=== PATIENT | male | born 1990 | race Caucasian/White ===

== ENCOUNTER 2017-12-02 11:54 | Emergency (ER) | payer MEDICAID ==
[2017-12-02 12:19] VITALS: BP 133/81
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
== END 2017-12-02 13:00 | disposition home or self-care (01) ==
LOC: ED 11:54
DX: F11.20 Opioid dependence, uncomplicated (principal); F17.210 Nicotine dependence, cigarettes, uncomplicated
CPT/HCPCS: 36415; 86703; 86803; 99281

== ENCOUNTER 2018-01-07 15:08 | Emergency (ER) | payer MEDICAID, OTHER ==
--- NOTE | 2018-01-07 16:11 | ED ---
Substance Abuse/Use - HPI Summary HPI Summary: Pt brought to the ED by EMS from [facility] after appearing somnolent during an appearance with court officer. Pt is prescribed ativan 1 mg tid and gabapentin, filled the former 2 days ago and misread instructions and was taking 3 pills tid, which he realized today after being confronted with it. He denies relapse on heroin. He is being followed via [facility], where his meds are prescribed. He denies any other complaints, says he is doing well on the other medications (suboxone as well), and is taking as prescribed. He expressed a desire to maintain on his sobriety and take meds as ordered. - History Of Current Complaint Chief Complaint: EDOverdose Stated Complaint: OVERDOSE Time Seen by Provider: 01/07/18 15:27 - Risk Factor(s) Completed Suicide Risk Factors: Male - Allergies/Home Medications Allergies/Adverse Reactions: Allergies Allergy/AdvReac Type Severity Reaction Status Date / Time amoxicillin Allergy Nausea And Verified 12/02/17 12:19 Vomiting PMH/Surg Hx/FS Hx/Imm Hx Sensory History: Denies: Hx Legally Blind, Hx Deafness Opthamlomology History: Denies: Hx Legally Blind Psychiatric History: Denies: Hx Eating Disorder Infectious Disease History: No Infectious Disease History: Denies: Hx Clostridium Difficile, Hx Hepatitis, Hx Human Immunodeficiency Virus (HIV), Hx of Known/Suspected MRSA, Hx Shingles, Hx Tuberculosis, Hx Known/ Suspected VRE, Hx Known/Suspected VRSA, History Other Infectious Disease, Traveled Outside the [place] in Last 30 Days - Family History Known Family History: Positive: Cardiac Disease - [place], Hypertension, Other - HLD , [place] Negative: Respiratory Disease, Blood Disorder - Social History Alcohol Use: None Hx Substance Use: Yes Substance Use Type: Reports: Heroin Substance Use Comment - Amount & Last Used: denies any usage since getting out of rehab Hx Tobacco Use: Yes Smoking Status (MU): Light Every Day Tobacco Smoker Type: eCigarettes Review of Systems Constitutional: Negative Negative: Fever, Chills Eyes: Negative ENT: Negative Cardiovascular: Negative Respiratory: Negative Gastrointestinal: Negative Genitourinary: Negative Skin: Negative All Other Systems Reviewed And Are Negative: Yes Physical Exam Triage Information Reviewed: Yes Vital Signs On Initial Exam: Initial Vitals Temp Pulse Resp BP Pulse Ox 36.8 C 82 14 120/67 100 01/07/18 15:10 01/07/18 15:10 01/07/18 15:10 01/07/18 15:10 01/07/18 15:10 Vital Signs Reviewed: Yes Appearance: Positive: Well-Appearing, No Pain Distress, Well-Nourished Skin: Positive: Warm, Skin Color Reflects Adequate Perfusion, Dry Head/Face: Positive: Normal Head/Face Inspection Eyes: Positive: Normal, EOMI, SEAN - pupils are not pinpoint, not c/w opioid toxidrome, Conjunctiva Clear ENT: Positive: Normal ENT inspection Neck: Positive: Supple Respiratory/Lung Sounds: Positive: Clear to Auscultation Cardiovascular: Positive: Normal, RRR Abdomen Description: Positive: Nontender Musculoskeletal: Positive: Strength/ROM Intact Neurological: Positive: Sensory/Motor Intact, Alert, Oriented to Person Place, Time - Pt is minimally somnolent, but does not require any arousal, does not not off during the interview Psychiatric: Positive: Normal, Affect/Mood Appropriate. Negative: Anxious, Depressed Diagnostics - Vital Signs Vital Signs Temp Pulse Resp BP Pulse Ox 01/07/18 15:33 80 11 123/69 97 01/07/18 15:10 36.8 C 82 14 120/67 100 - Laboratory Lab Statement: Any lab studies that have been ordered have been reviewed, and results considered in the medical decision making process. Course/Dx - Diagnoses Provider Diagnoses: Benzodiazepine intoxication Discharge - Sign-Out/Discharge Documenting (check all that apply): Discharge/Admit/Transfer - Discharge Plan Condition: Good Disposition: HOME Patient Education Materials: Benzodiazepine Overdose (ED) Referrals: Gato Brown MD [Primary Care Provider] - Additional Instructions: Make sure to take care with medication dosing instructions. If you are going to run out of the ativan before the next rx, you will need to contact your prescriber for an additional rx, or else ration what you have remaining to avoid running out and stopping the medicine abruptly - Billing Disposition and Condition Condition: GOOD Disposition: HOME
[2018-01-07 16:22] VITALS: BP 108/78
== END 2018-01-07 16:22 | disposition home or self-care (01) ==
LOC: ED 15:08
DX: R40.0 Somnolence (principal); T42.4X5A Adverse effect of benzodiazepines, initial encounter; Y92.240 Courthouse as the place of occurrence of the external cause; Z88.1 Allergy status to other antibiotic agents; F17.210 Nicotine dependence, cigarettes, uncomplicated
CPT/HCPCS: 99283

== ENCOUNTER 2018-02-22 19:35 | Emergency (ER) | payer MEDICAID, OTHER ==
[2018-02-22 19:40] VITALS: BP 129/77
[2018-02-22] MEDS ORDERED: Ketorolac INJ* 30 MG/ML 1 ML VIAL IV PUSH ONE (20:13)
[2018-02-22] MEDS ORDERED: Mouth Piece, Nicotine* 1 EACH CARTRIDGE ONE (20:32)
[2018-02-22] MEDS ORDERED: Nicotine Inhaler* 10 MG AMP ONE (20:32)
[2018-02-22] MEDS ORDERED: Nicotine Inhaler* 10 MG AMP INH ONE (20:37)
[2018-02-22] MEDS ORDERED: Mouth Piece, Nicotine* 1 EACH CARTRIDGE INH PRN (20:37)
[2018-02-22] MEDS ORDERED: NS 0.9% 1000 ML* 1,000 ML IV ONE (20:54)
[2018-02-22] MEDS: Nicotine PATCH 14 MG/24 HR* PATCH TRANSDERM ONE ×2 (21:01→22:05)
--- NOTE | 2018-02-22 21:03 | RAD ---
INDICATION: Right wrist pain after falling off a skateboard COMPARISON: None. TECHNIQUE: 3 views right wrist. REPORT: Overlying the volar distal pole of the right scaphoid there is a displaced fracture. Remaining visualized bones are intact and appropriately aligned. IMPRESSION: Minimally displaced fracture at the distal volar surface of the right scaphoid bone.
--- NOTE | 2018-02-22 21:10 | RAD ---
INDICATION: Preoperative chest x-ray COMPARISON: None. TECHNIQUE: Single AP view of the chest was obtained. FINDINGS: The heart and mediastinum exhibit normal size and contour. The lungs are grossly clear. There is no evidence of a large pleural effusion. Visualized bones are normal for the patient's age. IMPRESSION: No radiographic evidence for acute cardiopulmonary abnormality on this single AP view chest x-ray.
--- NOTE | 2018-02-22 21:12 | RAD ---
INDICATION: Left hip pain after falling off his skateboard COMPARISON: None TECHNIQUE: 3 views of the left hip and 9 views of the left femur were obtained. FINDINGS: Lucent lines overlying the left intertrochanteric space could be a nondisplaced fracture. Remaining visualized bones are intact and appropriately aligned. IMPRESSION: Likely nondisplaced left intertrochanteric fracture. If clinically warranted, this can be confirmed with CT of the left hip. If the patient's symptoms persist follow-up imaging is recommended.
[2018-02-22 21:27] LABS: ABS Basophils 0.1 10^3/ul (0-0.2); ABS Eosinophils 0.3 10^3/ul (0-0.6); ABS Lymphocytes 1.7 10^3/ul (1.0-4.8); ABS Monocytes 0.6 10^3/ul (0-0.8); ABS Neutrophils 7.8 10^3/ul (1.5-7.7); ABS Nucleated RBC 0 10^3/ul; Eosinophil % 2.6 % (0-6); Hematocrit 39 % (42-52); Hemoglobin 13.6 g/dl (14.0-18.0); Lymphocyte % 16.3 % (25-47); Mean Corpuscular HGB Conc 35 g/dl (31-36); Mean Corpuscular Hemoglobin 30 pg (27-31); Mean Corpuscular Volume 88 fL (80-94); Nucleated Red Blood Cells % 0.1; Platelet Count 214 10^3/ul (150-450); Red Blood Count 4.48 10^6/ul (4.00-5.40); Red Cell Distribution Width 15 % (10.5-15); White Blood Count 10.5 10^3/ul (3.5-10.8)
[2018-02-22 21:37] LABS: INR 1.12 (0.77-1.02)
[2018-02-22 21:43] LABS: EGFR Non-African American 106.1 (>60)
[2018-02-22] MEDS ORDERED: Nicotine PATCH 21 MG/24 HR* PATCH TRANSDERM ONE (21:52)
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
[2018-02-22] MEDS ORDERED: Nicotine PATCH 21 MG/24 HR* PATCH ONE (22:01)
--- NOTE | 2018-02-22 22:02 | RAD ---
CLINICAL HISTORY: Left hip pain after a skateboarding accident COMPARISON: Same day radiograph of the left hip TECHNIQUE: Axial CT images of the pelvis were obtained without intravenous contrast. Reformats in the sagittal and coronal planes were created and reviewed. FINDINGS: There is a nondisplaced right intertrochanteric fracture exhibiting a small degree of comminution. This is depicted best on the coronal plane images (image [id number]). The remaining visualized bones are intact and appropriately aligned. There is mild induration in the surrounding musculature at the fracture left hip. There is no drainable fluid collection or large hematoma. There is mild infiltration of the subcutaneous tissue overlying the left hip. The visualized lower pelvic soft tissue structures are grossly normal. IMPRESSION: Nondisplaced and comminuted left intertrochanteric fracture.
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
== END 2018-02-22 23:11 | disposition left against medical advice (07) ==
LOC: ED 19:35
DX: S62.002A Unspecified fracture of navicular [scaphoid] bone of left wrist, initial encounter for closed fracture (principal); S72.002A Fracture of unspecified part of neck of left femur, initial encounter for closed fracture; V00.131A Fall from skateboard, initial encounter; Y93.51 Activity, roller skating (inline) and skateboarding; Y92.9 Unspecified place or not applicable
CPT/HCPCS: 36415; 71045; 72192; 80053; 83605; 83735; 84484; 85025; 85610; 85730; 86850; 86900; 86901; 93005; 96374; 99283; A9270-GY; J1885

== ENCOUNTER 2018-02-22 23:33 | Emergency (ER) | payer MEDICAID ==
[2018-02-23] MEDS ORDERED: Nicotine PATCH 7 MG/24 HR* PATCH TRANSDERM ONE (00:47)
[2018-02-23 01:03] VITALS: BP 119/64
[2018-02-23] MEDS ORDERED: Nicotine PATCH 21 MG/24 HR* PATCH TRANSDERM ONE (01:11)
--- NOTE | 2018-02-23 01:23 | ED ---
Isabella Palma Emily, scribed for Mercy Thorne MD on 02/23/18 at 0016 . Adult Trauma - HPI Summary HPI Summary: This patient is a 27 year old M presenting to [facility] accompanied by girlfriend status post fall that occurred [employer]. Pt fell while skateboarding. He states that he landed on his left side and caught himself with his right hand. The patient rates the pain 10/10 in severity. Symptoms aggravated by movement. Symptoms alleviated by nothing. Pt was in the ED earlier, and diagnosed with a left hip fracture and right scaphoid fracture. He refused transfer to [facility] and [facility]. - History of Current Complaint Chief Complaint: EDTraumaMultiple Stated Complaint: ARM/HIP INJURY Time Seen by Provider: 02/22/18 23:49 Hx Obtained From: Patient Mechanism of Injury: Fall Onset/Duration: Started Hours Ago, Traumatic, Still Present Onset of Pain: Immediate Onset Severity: Severe Current Severity: Severe Pain Intensity: 10 Pain Scale Used: 0-10 Numeric Location: Extremities Aggravating Factor(s): Movement Alleviating Factor(s): Nothing - Allergy/Home Medications Allergies/Adverse Reactions: Allergies Allergy/AdvReac Type Severity Reaction Status Date / Time amoxicillin Allergy Nausea And Verified 12/02/17 12:19 Vomiting PMH/Surg Hx/FS Hx/Imm Hx Previously Healthy: No Respiratory History: Reports: Hx Asthma GI History: Reports: Other GI Disorders - Pancreatitis Sensory History: Denies: Hx Legally Blind, Hx Deafness Opthamlomology History: Denies: Hx Legally Blind Psychiatric History: Reports: Hx Substance Abuse - Opioid addiction Denies: Hx Eating Disorder Infectious Disease History: No Infectious Disease History: Denies: Hx Clostridium Difficile, Hx Hepatitis, Hx Human Immunodeficiency Virus (HIV), Hx of Known/Suspected MRSA, Hx Shingles, Hx Tuberculosis, Hx Known/ Suspected VRE, Hx Known/Suspected VRSA, History Other Infectious Disease, Traveled Outside the [place] in Last 30 Days - Family History Known Family History: Positive: Cardiac Disease - [place], Hypertension, Other - HLD , [place] Negative: Respiratory Disease, Blood Disorder - Social History Occupation: Employed Full-time Lives: Alone Alcohol Use: None Hx Substance Use: Yes Substance Use Type: Reports: Marijuana Substance Use Comment - Amount & Last Used: No heroin use x120 days Hx Tobacco Use: Yes Smoking Status (MU): Heavy Every Day Tobacco Smoker Type: Regina Review of Systems Negative: Chest Pain Positive: Other - Positive L hip pain and R arm pain All Other Systems Reviewed And Are Negative: Yes Physical Exam - Summary Physical Exam Summary: VITAL SIGNS: Reviewed. GENERAL: Patient is a well-developed and nourished male who is lying comfortable in the stretcher. Patient is not in any acute respiratory distress. HEAD AND FACE: No signs of trauma. No ecchymosis, hematomas or skull depressions. No sinus tenderness. EYES: PERRLA, EOMI x 2, No injected conjunctiva, no nystagmus. EARS: Hearing grossly intact. Ear canals and tympanic membranes are within normal limits. MOUTH: Oropharynx within normal limits. NECK: Supple, trachea is midline, no adenopathy, no JVD, no carotid bruit, no c- spine tenderness, neck with full ROM. CHEST: Symmetric, no tenderness at palpation LUNGS: Clear to auscultation bilaterally. No wheezing or crackles. CVS: Regular rate and rhythm, S1 and S2 present, no murmurs or gallops appreciated. ABDOMEN: Soft, non-tender. No signs of distention. No rebound no guarding, and no masses palpated. Bowel sounds are normal. EXTREMITIES: R wrist on thumb spica. L hip is tender, pain with movement. no edema, no cyanosis or clubbing. NEURO: Alert and oriented x 3. No acute neurological deficits. Speech is normal and follows commands. SKIN: Dry and warm Triage Information Reviewed: Yes Vital Signs On Initial Exam: Initial Vitals Temp Pulse Resp BP Pulse Ox 99.3 F 92 18 131/71 99 02/22/18 23:35 02/22/18 23:35 02/22/18 23:35 02/22/18 23:35 02/22/18 23:35 Vital Signs Reviewed: Yes Diagnostics - Vital Signs Vital Signs Temp Pulse Resp BP Pulse Ox 02/22/18 23:35 99.3 F 92 18 131/71 99 - Laboratory Lab Statement: Any lab studies that have been ordered have been reviewed, and results considered in the medical decision making process. Adult Trauma Course/Dx - Course Course Of Treatment: This patient is a 27 year old M presenting to [facility] accompanied by girlfriend status post fall that occurred [employer]. Pt fell while skateboarding. He states that he landed on his left side and caught himself with his right hand. Pt was in the ED earlier, and diagnosed with a left hip fracture and right scaphoid fracture. He refused transfer to [facility] and left AMA. Consult with Dr. Anguiano (emergency medicine at [facility]) at 0031. He accepts the patient to [facility]. The patient is agreeable with this plan. - Diagnoses Provider Diagnoses: Hip fracture, left, Fracture of scaphoid of right wrist - Physician Notifications Instructed by Provider To: Other - Consult with Dr. Anguiano (emergency medicine at [facility]) at 0031. He accepts the patient to [facility]. Discharge - Sign-Out/Discharge Documenting (check all that apply): Discharge/Admit/Transfer - Transfer - Discharge Plan Condition: Stable Disposition: TRANS HIGHER LVL OF CARE FAC The documentation as recorded by the Isabella garner Emily accurately reflects the service I personally performed and the decisions made by me, Mercy Thorne MD.
--- NOTE | 2018-02-23 05:46 | CONS ---
CC: PCP, Boo Paredes * CONSULTATION REPORT: DATE OF CONSULT: 02/22/18 ATTENDING PHYSICIAN: Dr. Juju Santillan. CHIEF COMPLAINT: Right wrist and left hip pain. HISTORY OF PRESENT ILLNESS: Briefly, Zeeshan Styles is a 27-year-old male who was skateboarding today when he fell, lost his balance, and landed on his left hip as well as his right wrist. He is left-hand dominant. He is a recovering heroin addict, almost 9 months sober. He is on Suboxone. He is present with his , who is currently and due in May. They have a lot of family issues going on dealing with family visitation and court issues. PAST MEDICAL HISTORY: Asthma and pancreatitis. PAST SURGICAL HISTORY: Negative. MEDICATIONS: Include: 1. Suboxone. 2. Ativan. ALLERGIES: He is allergic to AMOXICILLIN, which causes nausea and vomiting. FAMILY HISTORY: Includes hypertension and coronary artery disease. 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 He is trying to get his children back. He uses marijuana. He stopped using heroin almost 9 months ago. He does smoke tobacco one-half pack to 1 pack a day. He denies alcohol. He lives with his . He is left-hand dominant. REVIEW OF SYSTEMS: A 14-point review of systems was reviewed with the patient, significant for right wrist pain and left hip pain. Negative for loss of consciousness, headaches, shortness of breath, chest pain, or recent illnesses. Otherwise, remainder of the systems is negative. PHYSICAL EXAM: He is uncomfortable, lying in the stretcher. He is well- developed, well-nourished. He is alert and oriented x3. He has pleasant mood and normal affect. Good balance and coordination of the extremities. Vitals: Temperature of 99.8, pulse of 95, respiratory rate 18, O2 saturation 97%, and blood pressure of 129/77. HEENT: EOMI. Chest: Clear to auscultation. Heart: Regular rate and rhythm. Extremities: Examination of the right wrist demonstrates the skin is intact. There is no erythema or warmth. He is tender about the snuff box. He is able to perform a thumbs up, OK sign, flexes, and extends his digits. He is sensate to light touch about the first dorsal webspace; index, long and small finger. He has 2+ radial pulse. He has no pain on full range of motion of the right elbow and right shoulder. Examination of the left hip demonstrates there is some abrasion over the skin. There are no obvious open wounds. His calf is soft and nontender. He has pain with log roll. He is uncomfortable, just lying still. He is able to dorsiflex and plantar flex his ankle. He is sensate to light touch about the first dorsal webspace, medial, lateral, dorsal, and plantar foot. 2+ PT pulse. Nontender about the knee and the ankle. DIAGNOSTIC STUDIES: X-rays of the wrist and hip were reviewed and the left hip demonstrates greater trochanteric fracture with possible extension in the intertrochanteric fracture. X-rays of the right wrist demonstrate minimally displaced distal pole of the scaphoid fracture, but no other obvious injury. ASSESSMENT AND PLAN: He has 2 extremity injuries. He has minimally displaced fracture of the scaphoid. This will be placed in a thumb spica splint today. With regards to his hip, he potentially has a hip fracture. At this point, I think this would need to be treated surgically and urgently. He is 27 years old. Our hospital is not capable and I am not comfortable treating a 27-year- old with a possible hip fracture and if the CT demonstrates that he does in fact have an intertrochanteric hip fracture or femoral neck fracture, then I will transfer him to a trauma hospital that can help facilitate this. Update, he demonstrated an IT hip fracture and was transferred to a level 1 facility. [id number]/CPS #: [id number] GITA
[2018-02-23] MEDS ORDERED: Nicotine Patch Removal NOTE FOLLOW UP SCH (06:00)
== END 2018-02-23 01:26 | disposition short-term general hospital (02) ==
LOC: ED 23:33
DX: S72.002A Fracture of unspecified part of neck of left femur, initial encounter for closed fracture (principal); S62.101A Fracture of unspecified carpal bone, right wrist, initial encounter for closed fracture; M25.531 Pain in right wrist; M25.552 Pain in left hip; Z88.0 Allergy status to penicillin; F17.210 Nicotine dependence, cigarettes, uncomplicated; V00.131A Fall from skateboard, initial encounter; Y93.51 Activity, roller skating (inline) and skateboarding; Y92.89 Other specified places as the place of occurrence of the external cause
CPT/HCPCS: 99283

== ENCOUNTER 2018-02-27 17:04 | Emergency (ER) | payer MEDICAID ==
[2018-02-27] MEDS ORDERED: Ketorolac INJ* 30 MG/ML 1 ML VIAL IV PUSH ONE (17:23)
[2018-02-27 17:50] LABS: ABS Basophils 0 10^3/ul (0-0.2); ABS Eosinophils 0.8 10^3/ul (0-0.6); ABS Lymphocytes 1.8 10^3/ul (1.0-4.8); ABS Monocytes 0.6 10^3/ul (0-0.8); ABS Neutrophils 4.6 10^3/ul (1.5-7.7); ABS Nucleated RBC 0 10^3/ul; Eosinophil % 10.4 % (0-6); Hematocrit 26 % (42-52); Hemoglobin 8.9 g/dl (14.0-18.0); Lymphocyte % 23.2 % (25-47); Mean Corpuscular HGB Conc 34 g/dl (31-36); Mean Corpuscular Hemoglobin 30 pg (27-31); Mean Corpuscular Volume 89 fL (80-94); Nucleated Red Blood Cells % 0.1; Platelet Count 179 10^3/ul (150-450); Red Blood Count 2.97 10^6/ul (4.00-5.40); Red Cell Distribution Width 15 % (10.5-15); White Blood Count 7.8 10^3/ul (3.5-10.8)
[2018-02-27 18:14] LABS: EGFR Non-African American 148.5 (>60)
[2018-02-27] MEDS ORDERED: Buprenorphine TAB* 2 MG TAB.SL SL ONE (19:08)
[2018-02-27 20:35] VITALS: BP 126/73
[2018-02-27] MEDS ORDERED: Buprenorphine TAB* 8 MG PO ONE (21:00)
--- NOTE | 2018-02-27 21:26 | ED ---
Elias Palma Natalie, scribed for Fredrick Sofia MD on 02/27/18 at 1727 . HPI Chest Pain - HPI Summary HPI Summary: The patient is a 27 y/o M presenting to [facility] c/o chest tightness that started this afternoon. The pt recently had surgery in the ball joint of his left hip at [facility] s/p falling off a skateboard on 02/22/18. The pain has been increasing since, and is currently rated 10/10. There is also swelling in his left thigh. He has been taking Flexeril and Gabapentin to treat the pain to some relief. The pain is aggravated by movement and palpation. He additionally c /o nausea. - History of Current Complaint Time Seen by Provider: 02/27/18 17:06 Hx Obtained From: Patient Onset/Duration: Started Hours Ago, Still Present Timing: Intermittent Initial Severity: Moderate Current Severity: Severe Pain Intensity: 10 Pain Scale Used: 0-10 Numeric Chest Pain Location: Diffuse Chest Pain Radiates: No Character: Tightness Aggravating Factor(s): Movement, Other: - palpation Alleviating Factor(s): Medication - Gabapentin Flexeril Associated Signs and Symptoms: Positive: Swelling - in left thigh, Nausea - Allergy/Home Medications Allergies/Adverse Reactions: Allergies Allergy/AdvReac Type Severity Reaction Status Date / Time amoxicillin Allergy Nausea And Verified 12/02/17 12:19 Vomiting Home Medications: Home Medications Buprenorphine HCl/Naloxone HCl [Suboxone 12 mg-3 mg Sl Film] 12 mg .SEE ORDER DAILY 02/27/18 [History Confirmed 02/27/18] Buprenorphine HCl/Naloxone HCl [Suboxone 8 mg-2 mg Sl Film] 8 mg .SEE ORDER DAILY 02/27/18 [History Confirmed 02/27/18] PMH/Surg Hx/FS Hx/Imm Hx Respiratory History: Reports: Hx Asthma GI History: Reports: Other GI Disorders - Pancreatitis Sensory History: Denies: Hx Legally Blind, Hx Deafness Opthamlomology History: Denies: Hx Legally Blind Psychiatric History: Reports: Hx Substance Abuse - Opioid addiction Denies: Hx Eating Disorder Infectious Disease History: No Infectious Disease History: Denies: Hx Clostridium Difficile, Hx Hepatitis, Hx Human Immunodeficiency Virus (HIV), Hx of Known/Suspected MRSA, Hx Shingles, Hx Tuberculosis, Hx Known/ Suspected VRE, Hx Known/Suspected VRSA, History Other Infectious Disease, Traveled Outside the US in Last 30 Days - Family History Known Family History: Positive: Cardiac Disease - [place], Hypertension, Other - HLD , [place] Negative: Respiratory Disease, Blood Disorder - Social History Alcohol Use: None Hx Substance Use: Yes Substance Use Type: Reports: Marijuana Substance Use Comment - Amount & Last Used: No heroin use x120 days Hx Tobacco Use: Yes Smoking Status (MU): Heavy Every Day Tobacco Smoker Type: eCigarettes Review of Systems Positive: Chest Pain Positive: Nausea Positive: Other - pain and swelling in left thigh from surgery All Other Systems Reviewed And Are Negative: Yes Physical Exam - Summary Physical Exam Summary: Appearance: The patient is well-nourished in no acute distress and in no acute pain. Skin: The skin is warm and dry and skin color reflects adequate perfusion. Wound on left lateral thigh is clean and without discharge. HEENT: The head is normocephalic and atraumatic. The pupils are equal and reactive. The conjunctivae are clear and without drainage. Nares are patent and without drainage. Mouth reveals moist mucous membranes and the throat is without erythema and exudate. The external ears are intact. The ear canals are patent and without drainage. The tympanic membranes are intact. Neck: The neck is supple with full range of motion and non-tender. There are no carotid bruits. There is no neck vein distension. Respiratory: Chest is non-tender. Lungs are clear to auscultation and breath sounds are symmetrical and equal. Cardiovascular: Heart is regular rate and rhythm. There is no murmur or rub auscultated. There is no peripheral edema and pulses are symmetrical and equal. Abdomen: The abdomen is soft and non-tender. There are normal bowel sounds heard in all four quadrants and there is no organomegaly palpated. Musculoskeletal: There is no back tenderness noted. Extremities are non-tender with full range of motion. There is good capillary refill. There is no peripheral edema or calf tenderness elicited. Neurological: Patient is alert and oriented to person, place and time. The patient has symmetrical motor strength in all four extremities. Cranial nerves are grossly intact. Deep tendon reflexes are symmetrical and equal in all four extremities. Psychiatric: The patient has an appropriate affect and does not exhibit any anxiety or depression. Triage Information Reviewed: Yes Vital Signs On Initial Exam: Initial Vitals Temp Pulse Resp BP Pulse Ox 100.3 F 99 18 132/79 99 02/27/18 17:07 02/27/18 17:07 02/27/18 17:07 02/27/18 17:07 02/27/18 17:07 Vital Signs Reviewed: Yes Diagnostics - Vital Signs Vital Signs Temp Pulse Resp BP Pulse Ox 02/27/18 17:08 113 25 98 02/27/18 17:07 100.3 F 103 25 132/79 97 - Laboratory Lab Results: Lab Results 02/27/18 02/27/18 Range/Units 17:31 17:31 WBC 7.8 (3.5-10.8) 10^3/ul RBC 2.97 L (4.00-5.40) 10^6/ul Hgb 8.9 L (14.0-18.0) g/dl Hct 26 L (42-52) % MCV 89 (80-94) fL MCH 30 (27-31) pg MCHC 34 (31-36) g/dl RDW 15 (10.5-15) % Plt Count 179 (150-450) 10^3/ul MPV 8.0 (7.4-10.4) um3 Neut % (Auto) 58.5 (38-83) % Lymph % (Auto) 23.2 L (25-47) % Crane % (Auto) 7.4 H (0-7) % Eos % (Auto) 10.4 H (0-6) % Baso % (Auto) 0.5 (0-2) % Absolute Neuts (auto) 4.6 (1.5-7.7) 10^3/ul Absolute Lymphs (auto) 1.8 (1.0-4.8) 10^3/ul Absolute Monos (auto) 0.6 (0-0.8) 10^3/ul Absolute Eos (auto) 0.8 H (0-0.6) 10^3/ul Absolute Basos (auto) 0 (0-0.2) 10^3/ul Absolute Nucleated RBC 0 10^3/ul Nucleated RBC % 0.1 Sodium 140 (135-145) mmol/L Potassium 3.4 L (3.5-5.0) mmol/L Chloride 105 (101-111) mmol/L Carbon Dioxide 29 (22-32) mmol/L Anion Gap 6 (2-11) mmol/L BUN 10 (6-24) mg/dL Creatinine 0.65 L (0.67-1.17) mg/dL Est GFR ( Amer) 179.7 (>60) Est GFR (Non-Af Amer) 148.5 (>60) BUN/Creatinine Ratio 15.4 (8-20) Glucose 88 (70-100) mg/dL Calcium 8.9 (8.6-10.3) mg/dL Total Bilirubin 0.40 (0.2-1.0) mg/dL AST 53 H (13-39) U/L ALT 17 (7-52) U/L Alkaline Phosphatase 54 (34-104) U/L C-Reactive Protein 31.16 H (<8.01) mg/L Total Protein 6.2 L (6.4-8.9) g/dL Albumin 3.6 (3.2-5.2) g/dL Globulin 2.6 (2-4) g/dL Albumin/Globulin Ratio 1.4 (1-3) Result Diagrams: 02/27/18 17:31 02/27/18 17:31 Lab Statement: Any lab studies that have been ordered have been reviewed, and results considered in the medical decision making process. Re-Evaluation - Re-Evaluation First Eval Re-Evaluation Time: 20:20 Change: Unchanged Comment: The pt denied Suboxone treatment. He wants to go home. He will be discharged with a follow up with his doctor. Chest Pain Course/Dx - Course Course Of Treatment: Mr. Styles presented to the emergency department complaining of severe pain in his left hip. He was seen in this emergency department late on the after falling off a skateboard and fracturing a bone in his right wrist and his left hip. He left AMA but returned later and was transferred to [facility] for surgery which I believe that he had on the . When I first evaluate him he minimizes the chest pain does admit that his right wrist hurts but is complaining of severe pain in his left hip. He is writhing about in the bed saying this never experienced pain this bad and it has come on gradually since he left the hospital. He states that he has been on Suboxone 20 mg a day chronically and that he has not had that since he had surgery. He tells me that he was given fentanyl in the hospital and discharged on gabapentin and Tylenol. On presentation his temperature is 100.3. The wound was clean in appearance but very tender to any type touch. Just taking the bandage off caused him severe pain. Initially I gave him ketorolac and fluids while getting labs with a concern for possible wound infection. When I reevaluated him after his labs returned with a normal white count, a new anemia and a mild elevation of his CRP, he again complained of severe pain in his left hip. He relates to me that he is to be seen at [facility] on Thursday to be placed on Subutex for the perioperative period in case he requires narcotic pain medication. I offered to give him Subutex at this time 8 mg and if that does not cause a precipitated withdrawal, to give him 12 more. If that did not manage his pain at that point we would give him additional narcotic pain medication. Subutex has to be obtained from the pharmacy and this took a good deal of time and he suddenly announce that he wanted to leave to go to [facility]. The conversation at that point was a bit confusing. He initially complained that he had not had a blood test for a blood clot. I pointed out that a d- dimer would most likely be elevated secondary to his recent surgery and offered to get an ultrasound of his leg. He then complained that he hadn't been given an anti-inflammatory and it had been several hours. I pointed out that he had received IV ketorolac shortly after presentation. He then complained that I had offered him Subutex when he has Suboxone at home although earlier he had told me he wasn't taking the Suboxone because he was to be placed on Subutex. Subutex had arrived from the pharmacy at that point and I encouraged him to stay and take the medication. While we were waiting for it to work we would get an ultrasound and possibly a CTA. Then we would be reassured that he did not have a blood clot and his pain would be adequately managed. I would then give him a prescription for Subutex to get him through until he got to [facility]. He was not interested and wanted to be discharged so that he can go to [facility]. - Diagnoses Provider Diagnoses: Post-op pain Discharge - Sign-Out/Discharge Documenting (check all that apply): Discharge/Admit/Transfer - Pt will be discharged home. - Discharge Plan Condition: Stable Disposition: HOME Patient Education Materials: Pain Management (ED) Referrals: Gato Brown MD [Primary Care Provider] - 2 Days Additional Instructions: Follow up with your primary care provider in 2-3 days. Return to the emergency department for any new or worsening symptoms. - Billing Disposition and Condition Condition: STABLE Disposition: Home The documentation as recorded by the Elias garner Natalie accurately reflects the service I personally performed and the decisions made by me, Fredrick Sofia MD.
== END 2018-02-27 20:34 | disposition home or self-care (01) ==
LOC: ED 17:04
DX: G89.18 Other acute postprocedural pain (principal); F17.290 Nicotine dependence, other tobacco product, uncomplicated; Z82.49 Family history of ischemic heart disease and other diseases of the circulatory system; M25.552 Pain in left hip
CPT/HCPCS: 36415; 80053; 85025; 86140; 96374; 99283; A9270-GY; J1885

== ENCOUNTER 2018-08-15 20:29 | Emergency (ER) | payer OTHER ==
[2018-08-15] MEDS ORDERED: oxyCODONE TAB* 5 MG TAB PO ONE (21:28)
--- NOTE | 2018-08-15 21:43 | ED ---
Throat Pain/Nasal Congestion - HPI Summary HPI Summary: Patient complains of right side upper and lower dental pain since Thursday. States he ate some jerky thursday and rt side teeth have been hurting since. History of multiple dental caries. Denies purulent discharge, fever, sore throat. Patient also states he has been taking handfuls of ibuprofen and Tylenol over the past 2 days. Patient vague on how much he has taken of either or when he took them. States last known intake of Tylenol of unknown quantity at 5:30 PM today. Patient on Suboxone. - History of Current Complaint Chief Complaint: EDDentalPain Time Seen by Provider: 08/15/18 20:53 Hx Obtained From: Patient Onset/Duration: Gradual Onset Severity: Severe Associated Signs And Symptoms: Positive: Negative Cough: None - Allergies/Home Medications Allergies/Adverse Reactions: Allergies Allergy/AdvReac Type Severity Reaction Status Date / Time amoxicillin Allergy Nausea And Verified 12/02/17 12:19 Vomiting PMH/Surg Hx/FS Hx/Imm Hx Endocrine/Hematology History: Denies: Hx Anticoagulant Therapy Cardiovascular History: Denies: Hx Cardiac Arrest Respiratory History: Reports: Hx Asthma GI History: Reports: Other GI Disorders - Pancreatitis History: Denies: Hx Dialysis Sensory History: Denies: Hx Legally Blind, Hx Deafness Opthamlomology History: Denies: Hx Legally Blind Neurological History: Denies: Hx CVA Psychiatric History: Reports: Hx Substance Abuse - Opioid addiction Denies: Hx Eating Disorder Infectious Disease History: No Infectious Disease History: Denies: Hx Clostridium Difficile, Hx Hepatitis, Hx Human Immunodeficiency Virus (HIV), Hx of Known/Suspected MRSA, Hx Shingles, Hx Tuberculosis, Hx Known/ Suspected VRE, Hx Known/Suspected VRSA, History Other Infectious Disease, Traveled Outside the [place] in Last 30 Days - Family History Known Family History: Positive: Cardiac Disease - [place], Hypertension, Other - HLD , [place] Negative: Respiratory Disease, Blood Disorder - Social History Alcohol Use: None Hx Substance Use: Yes Substance Use Type: Reports: Marijuana Substance Use Comment - Amount & Last Used: pt reports to be recovering from opioids addiction Hx Tobacco Use: Yes Smoking Status (MU): Heavy Every Day Tobacco Smoker Type: eCigarettes Review of Systems Constitutional: Negative Eyes: Negative Positive: Dental Pain Cardiovascular: Negative Respiratory: Negative Gastrointestinal: Negative Genitourinary: Negative Musculoskeletal: Negative Skin: Negative Neurological: Negative Psychological: Normal All Other Systems Reviewed And Are Negative: Yes Physical Exam Triage Information Reviewed: Yes Vital Signs On Initial Exam: Initial Vitals Temp Pulse Resp BP Pulse Ox 98.8 F 76 16 109/49 98 08/15/18 20:42 08/15/18 20:42 08/15/18 20:42 08/15/18 20:42 08/15/18 20:42 Vital Signs Reviewed: Yes Appearance: Positive: Well-Appearing Skin: Positive: Warm Head/Face: Positive: Normal Head/Face Inspection Eyes: Positive: Normal ENT: Positive: Normal ENT inspection Dental: Positive: Gross Decay/Caries @. Negative: Dental Fracture @, Abscess @ , Bleeding Neck: Positive: Supple Respiratory/Lung Sounds: Positive: Clear to Auscultation Cardiovascular: Positive: Normal Abdomen Description: Positive: Nontender Musculoskeletal: Positive: Normal Neurological: Positive: Normal Psychiatric: Positive: Normal AVPU Assessment: Alert - [place] Coma Scale Best Eye Response: 4 - Spontaneous Best Motor Response: 6 - Obeys Commands Best Verbal Response: 5 - Oriented Coma Scale Total: 15 Diagnostics - Vital Signs Vital Signs Temp Pulse Resp BP Pulse Ox 08/15/18 20:42 98.8 F 76 16 109/49 98 - Laboratory Result Diagrams: 08/15/18 21:50 08/16/18 01:52 Lab Statement: Any lab studies that have been ordered have been reviewed, and results considered in the medical decision making process. EENT Course/Dx - Course Course Of Treatment: Patient complains of right side dental pain upper and lower since Thursday. States he ate some turkey and teeth have been hurting since. History of multiple dental caries. Denies purulent discharge, fever, sore throat. Patient also states he has been taking handfuls of ibuprofen and Tylenol over the past 2 days. Patient vague on how much she has taken of either or when he took them. States last known intake of Tylenol at 5:30 PM today. Patient on Suboxone. Physical exam:. Multiple dental caries. No apical abscess. Acetaminophen level elevated at 65 at 9:50pm. LFTs at 9:50 PM normal. Discussed patient with poison control regarding vague potential amount of intake of Tylenol and times of intake. Poison control recommended repeat acetaminophen level and LFTs 4 hours from initial testing at 2 AM. Patient agrees to stay and be checked. Patient pain controlled with hydrocodone. Second CMP at 2 AM normal LFTs. - Diagnoses Provider Diagnoses: Jaw pain, Accidental acetaminophen overdose Discharge - Sign-Out/Discharge Documenting (check all that apply): Sign-Out Patient Signing out patient TO: Fredrick West - Discharge Plan Condition: Stable Disposition: HOME Prescriptions: Clindamycin HCl 300 mg PO TID 7 Days #21 capsule Oxycodone HCl 5 mg PO TID 2 Days #6 tablet MDD 3 tabs Patient Education Materials: Acute Dental Trauma (ED), Acetaminophen Overdose ( ED) Referrals: Gato Brown MD [Primary Care Provider] - Additional Instructions: Follow-up with your dentist. Take Tylenol within prescribed doses. Return to the ED for any new or worsening symptoms. - Billing Disposition and Condition Condition: STABLE Disposition: Home
[2018-08-15 23:03] LABS: ABS Basophils 0.1 10^3/ul (0-0.2); ABS Eosinophils 0.6 10^3/ul (0-0.6); ABS Lymphocytes 2.4 10^3/ul (1.0-4.8); ABS Monocytes 0.4 10^3/ul (0-0.8); ABS Neutrophils 3.3 10^3/ul (1.5-7.7); ABS Nucleated RBC 0 10^3/ul; Hematocrit 41 % (42-52); Hemoglobin 13.8 g/dl (14.0-18.0); Lymphocyte % 35.1 %; Mean Corpuscular HGB Conc 34 g/dl (31-36); Mean Corpuscular Hemoglobin 30 pg (27-31); Mean Corpuscular Volume 88 fL (80-94); Mean Platelet Volume 7.9 fL (7.4-10.4); Nucleated Red Blood Cells % 0.1; Platelet Count 243 10^3/ul (150-450); Red Blood Count 4.59 10^6/ul (4.00-5.40); Red Cell Distribution Width 15 % (10.5-15); White Blood Count 6.8 10^3/ul (3.5-10.8)
[2018-08-15 23:14] LABS: EGFR Non-African American 79.5 (>60)
[2018-08-15] MEDS ORDERED: Ondansetron ODT TAB* 4 MG PO ONE (23:31)
[2018-08-16 02:22] LABS: EGFR Non-African American 86.6 (>60)
[2018-08-16 03:21] VITALS: BP 119/49
== END 2018-08-16 03:23 | disposition home or self-care (01) ==
LOC: ED 20:29
DX: R68.84 Jaw pain (principal); T39.1X1A Poisoning by 4-Aminophenol derivatives, accidental (unintentional), initial encounter; K08.89 Other specified disorders of teeth and supporting structures; F17.210 Nicotine dependence, cigarettes, uncomplicated; Y92.9 Unspecified place or not applicable; Z88.0 Allergy status to penicillin
CPT/HCPCS: 36415; 80053; 80329; 85025; 86140; 99283; A9270-GY; G0480

== ENCOUNTER 2019-02-19 11:27 | Emergency (ER) | payer OTHER ==
--- NOTE | 2019-02-19 11:58 | ED ---
Lower Extremity - HPI Summary HPI Summary: This patient is a 28 year old Male presenting to [facility] for evaluation of recent left hip injury. Pt had to leave work early this past week d/t left hip pain after a triathalon with his . He says the hip feels better and would just like to be cleared to return to work. He describes his resolved pain as an achy pain. The patient has no present complaints. Pt. notes left femur fx last year. Sxs are mild in severity. No current modifying factors. - History of Current Complaint Chief Complaint: EDGeneral Stated Complaint: GENERAL(LEFT HIP CHECK)FOR RETURN TO WORK PER PT Time Seen by Provider: 02/19/19 11:35 Hx Obtained From: Patient Pain Intensity: 0 - Allergies/Home Medications Allergies/Adverse Reactions: Allergies Allergy/AdvReac Type Severity Reaction Status Date / Time amoxicillin Allergy Nausea And Verified 12/02/17 12:19 Vomiting PMH/Surg Hx/FS Hx/Imm Hx Previously Healthy: Yes Endocrine/Hematology History: Denies: Hx Anticoagulant Therapy Cardiovascular History: Denies: Hx Cardiac Arrest Respiratory History: Reports: Hx Asthma GI History: Reports: Other GI Disorders - Pancreatitis History: Denies: Hx Dialysis Sensory History: Denies: Hx Legally Blind, Hx Deafness Opthamlomology History: Denies: Hx Legally Blind Neurological History: Denies: Hx CVA Psychiatric History: Reports: Hx Substance Abuse - Opioid addiction Denies: Hx Eating Disorder Infectious Disease History: No Infectious Disease History: Denies: Hx Clostridium Difficile, Hx Hepatitis, Hx Human Immunodeficiency Virus (HIV), Hx of Known/Suspected MRSA, Hx Shingles, Hx Tuberculosis, Hx Known/ Suspected VRE, Hx Known/Suspected VRSA, History Other Infectious Disease, Traveled Outside the [place] in Last 30 Days - Family History Known Family History: Positive: Cardiac Disease - [place], Hypertension, Other - HLD , [place] Negative: Respiratory Disease, Blood Disorder - Social History Occupation: Employed Full-time Lives: With Family Alcohol Use: None Hx Substance Use: Yes Substance Use Type: Reports: Marijuana Substance Use Comment - Amount & Last Used: pt reports to be recovering from opioids addiction Hx Tobacco Use: Yes Smoking Status (MU): Heavy Every Day Tobacco Smoker Type: eCigarettes Review of Systems Constitutional: Negative Negative: Fever Gastrointestinal: Negative Negative: Abdominal Pain Genitourinary: Negative Positive: other - no testicular pain Positive: Other - Left hip pain, resolved. Skin: Negative Negative: Weakness, Paresthesia, Numbness All Other Systems Reviewed And Are Negative: Yes Physical Exam Triage Information Reviewed: Yes Vital Signs On Initial Exam: Initial Vitals Temp Pulse Resp BP Pulse Ox 99.3 F 73 16 140/81 96 02/19/19 11:30 02/19/19 11:30 02/19/19 11:30 02/19/19 11:30 02/19/19 11:30 Vital Signs Reviewed: Yes Appearance: Positive: Well-Appearing - Patient lying comfortable on the stretcher in no pain distress. Skin: Positive: Warm, Dry Head/Face: Positive: Normal Head/Face Inspection Eyes: Positive: Normal, EOMI Neck: Positive: Supple Musculoskeletal: Positive: Other - Palpable pedal pulse on the left. No bony tenderness to the left lower extremity. Old healed incision scar noted to the lateral aspect of the left upper leg. No pain with rotation of left hip. Neurological: Positive: Normal, CN Intact II-III Psychiatric: Positive: Affect/Mood Appropriate Diagnostics - Vital Signs Vital Signs Temp Pulse Resp BP Pulse Ox 02/19/19 11:30 99.3 F 73 16 140/81 96 - Laboratory Lab Statement: Any lab studies that have been ordered have been reviewed, and results considered in the medical decision making process. Lower Extremity Course/Dx - Course Course Of Treatment: Pt. presenting for evaluation of recent hip injury. Exam unremarkable. Pt. has no pain on exam and is ambulating without difficulty. Pt. dc home. To f.u with PCP. - Diagnoses Differential Diagnosis/HQI/PQRI: Positive: Dislocation, Fracture (Closed), Sprain, Strain Provider Diagnoses: Hip sprain Discharge - Sign-Out/Discharge Documenting (check all that apply): Patient Departure Patient Received Moderate/Deep Sedation with Procedure: No - Discharge Plan Condition: Good Disposition: HOME Patient Education Materials: Hip Sprain (ED) Forms: *Work Release Referrals: Gato Brown MD [Medical Doctor] - Additional Instructions: Follow up with PCP if needed Tylenol or Motrin for pain as directed Return to ER if symptoms change or worsen - Billing Disposition and Condition Condition: GOOD Disposition: Home - Attestation Statements Document Initiated by Scribe: Yes Documenting Scribe: Zeeshan Mac Provider For Whom Scribe is Documenting (Include Credential): TRE Spears Scribe Attestation: I, Zeeshan Mac, scribed for TRE Spears on 02/20/19 at 0648. Scribe Documentation Reviewed: Yes Provider Attestation: The documentation as recorded by the scribe, Zeeshan Mac accurately reflects the service I personally performed and the decisions made by me, TRE Spears Status of Scribe Document: Viewed
[2019-02-19 12:37] VITALS: BP 113/70
== END 2019-02-19 12:37 | disposition home or self-care (01) ==
LOC: ED 11:27
DX: S73.102A Unspecified sprain of left hip, initial encounter (principal); F17.290 Nicotine dependence, other tobacco product, uncomplicated; X58.XXXA Exposure to other specified factors, initial encounter
CPT/HCPCS: 99282

== ENCOUNTER 2019-08-28 18:31 | Emergency (ER) | payer OTHER ==
[2019-08-28] MEDS ORDERED: oxyCODONE TAB* 5 MG TAB PO ONE (20:13)
[2019-08-28] MEDS ORDERED: HYDROcodone/ACETAMIN 5-325 MG* 1 TAB PO ONE (20:14)
[2019-08-28] MEDS ORDERED: Lidocaine 2% VISCOUS* 15 ML UDC PO ONE (20:15)
[2019-08-28] MEDS ORDERED: Penicillin VK TAB* 250 MG PO ONE (20:20)
[2019-08-28] MEDS ORDERED: Clindamycin CAP* 150 MG PO ONE (20:22)
--- NOTE | 2019-08-28 20:22 | ED ---
Throat Pain/Nasal Congestion - HPI Summary HPI Summary: 29 year old male presents with dental pain for the past couple weeks. He said been taking ibuprofen with minimal relief. States he has not followed up with the dentist as he doesn't have dental insurance. Patient states the area feels swollen. Denies any chest pressures or shortness of breath. No fevers. No difficulties swallowing. - History of Current Complaint Chief Complaint: EDDentalPain Time Seen by Provider: 08/28/19 18:40 - Allergies/Home Medications Allergies/Adverse Reactions: Allergies Allergy/AdvReac Type Severity Reaction Status Date / Time amoxicillin Allergy Nausea And Verified 12/02/17 12:19 Vomiting PMH/Surg Hx/FS Hx/Imm Hx Endocrine/Hematology History: Denies: Hx Anticoagulant Therapy Cardiovascular History: Denies: Hx Cardiac Arrest Respiratory History: Reports: Hx Asthma GI History: Reports: Other GI Disorders - Pancreatitis History: Denies: Hx Dialysis Sensory History: Denies: Hx Legally Blind, Hx Deafness Opthamlomology History: Denies: Hx Legally Blind Neurological History: Denies: Hx CVA Psychiatric History: Reports: Hx Substance Abuse - Opioid addiction Denies: Hx Eating Disorder Infectious Disease History: No Infectious Disease History: Denies: Hx Clostridium Difficile, Hx Hepatitis, Hx Human Immunodeficiency Virus (HIV), Hx of Known/Suspected MRSA, Hx Shingles, Hx Tuberculosis, Hx Known/ Suspected VRE, Hx Known/Suspected VRSA, History Other Infectious Disease, Traveled Outside the [place] in Last 30 Days - Family History Known Family History: Positive: Cardiac Disease - [place], Hypertension, Other - HLD , [place] Negative: Respiratory Disease, Blood Disorder - Social History Alcohol Use: None Hx Substance Use: Yes Substance Use Type: Reports: None Substance Use Comment - Amount & Last Used: pt reports to be recovering from opioids addiction Hx Tobacco Use: Yes Smoking Status (MU): Heavy Every Day Tobacco Smoker Type: [place] Review of Systems Negative: Fever Positive: Dental Pain Negative: Chest Pain Negative: Shortness Of Breath All Other Systems Reviewed And Are Negative: Yes Physical Exam Triage Information Reviewed: Yes Vital Signs On Initial Exam: Initial Vitals Temp Pulse Resp BP Pulse Ox 98.9 F 63 18 116/73 100 08/28/19 18:32 08/28/19 18:32 08/28/19 18:32 08/28/19 18:32 08/28/19 18:32 Vital Signs Reviewed: Yes Appearance: Positive: Well-Appearing Skin: Positive: Warm, Dry Head/Face: Positive: Normal Head/Face Inspection Eyes: Positive: Normal, EOMI, SEAN, Conjunctiva Clear ENT: Positive: Pharynx normal, TMs normal Dental: Positive: Percussion Tenderness @ - 18, Gross Decay/Caries @ - throughout. Negative: Abscess @ Respiratory/Lung Sounds: Positive: Clear to Auscultation, Breath Sounds Present Cardiovascular: Positive: Normal, RRR Musculoskeletal: Positive: Normal Neurological: Positive: Normal Psychiatric: Positive: Normal Procedures - Sedation Patient Received Moderate/Deep Sedation with Procedure: No Diagnostics - Vital Signs Vital Signs Temp Pulse Resp BP Pulse Ox 08/28/19 18:32 98.9 F 63 18 116/73 100 - Laboratory Lab Statement: Any lab studies that have been ordered have been reviewed, and results considered in the medical decision making process. EENT Course/Dx - Course Course Of Treatment: 29 year old male presents with dental pain for the past couple weeks. He said been taking ibuprofen with minimal relief. States he has not followed up with the dentist as he doesn't have dental insurance. Patient states the area feels swollen. Denies any chest pressures or shortness of breath. No fevers. No difficulties swallowing. On exam appears in pain distress. Has tenderness over lower jaw. Some erythema noted. No abscess noted. Will treat with clindamycin. Patient is on Suboxone. gave lidocaine for the area. Told follow up with dentist. Patient understands agrees plan. - Differential Diagnoses Differential Diagnoses: Dental Abscess, Dental Caries, Fractured Tooth - Diagnoses Provider Diagnoses: Dental infection Discharge ED - Sign-Out/Discharge Documenting (check all that apply): Patient Departure - Discharge Plan Condition: Good Disposition: HOME Prescriptions: Clindamycin Cap(NF) [Clindamycin Cap 300 mg Cap(NF)] 300 mg PO TID #20 cap Lidocaine 2% VISCOUS* [Xylocaine 2% Viscous*] 15 ml SWISH SPIT Q6H PRN #1 btl PRN Reason: Pain - Moderate Patient Education Materials: Toothache (ED) Referrals: No Primary Care Phys,NOPCP [Primary Care Provider] - Additional Instructions: Take clindamycin three times a day for 7 days use lidocaine 15ml apply to area and spit every 6 hours as needed for pain, do not exceed this amount Take ibuprofen or tyenlol every 6 hours for pain as needed Avoid hard, crunchy food until seen by dentist Return to ED if develop any new or worsening symptoms - Billing Disposition and Condition Condition: GOOD Disposition: Home
[2019-08-28 20:38] VITALS: BP 141/86
== END 2019-08-28 20:35 | disposition home or self-care (01) ==
LOC: ED 18:31
DX: K04.7 Periapical abscess without sinus (principal); J45.909 Unspecified asthma, uncomplicated; F17.290 Nicotine dependence, other tobacco product, uncomplicated; Z88.0 Allergy status to penicillin
CPT/HCPCS: 99283; A9270-GY